=== PATIENT | female | born 1960 | race Caucasian/White ===

== ENCOUNTER 2018-12-22 20:43 | Emergency (ER) | payer MEDICAID, MEDICARE ==
[2018-12-22 21:30] VITALS: BP 165/90; PULSE 75; RESP 20; TEMP 98.6; O2SAT 100
[2018-12-22] MEDS ORDERED: Bacitracin 500 Units/gm Oint Foilpak UD TOP ONE (23:14)
--- NOTE | 2018-12-22 23:17 | C.PDOC ---
History Of Present Illness 58 year old female presents to the Ed c/o bilateral foot pain. Patient reports while at home she dropped a heavy hot pod that hit her left foot, she also fell to the ground. Patient initially c/o bilateral foot pain, while in the ED as time progressed she started c/o back achiness. Patient denies headache, neck pain, LOC, weakness, numbness. Time Seen by Provider: 12/22/18 21:24 Chief Complaint (Nursing): Lower Extremity Problem/Injury History Per: Patient History/Exam Limitations: no limitations Onset/Duration Of Symptoms: Hrs Current Symptoms Are (Timing): Still Present Recent travel outside of the [place]: No Additional History Per: Patient - Ankle/Foot Description Of Injury: Struck With Object Past Medical History Reviewed: Historical Data, Nursing Documentation, Vital Signs Vital Signs: Last Vital Signs Temp 98.6 F 12/22/18 21:26 Pulse 75 12/22/18 21:26 Resp 20 12/22/18 21:26 BP 165/90 H 12/22/18 21:26 Pulse Ox 100 12/22/18 21:26 - Medical History PMH: Anxiety, Back Problems (HERNIATED LUMBAR DISCS), Rheumatoid Arthritis, Chronic Pain (lower back pain) Denies: Chronic Kidney Disease Surgical History: No Surg Hx - [facility] Procedures CENTRAL VENOUS CATHETER PLACEMENT WITH GUIDANCE (12/02/14) CLOSURE SKIN & SUBCUTANEOUS NEC (07/31/14) PHYSICAL THERAPY NEC (08/12/14) SPINAL TAP (12/02/14) TETANUS TOXOID ADMINIST (07/31/14) Family History: States: Unknown Family Hx - Social History Hx Tobacco Use: Yes Hx Alcohol Use: No Hx Substance Use: No (DENIED) - Immunization History Hx Tetanus Toxoid Vaccination: Yes Hx Influenza Vaccination: Yes Hx Pneumococcal Vaccination: No Review Of Systems Constitutional: Negative for: Fever, Chills, Weakness Eyes: Negative for: Redness, Other ENT: Negative for: Mouth Swelling Cardiovascular: Negative for: Chest Pain Respiratory: Negative for: Cough, Shortness of Breath Gastrointestinal: Negative for: Nausea, Vomiting, Diarrhea Musculoskeletal: Positive for: Back Pain, Foot Pain Skin: Negative for: Rash Neurological: Negative for: Weakness, Numbness, Headache, Dizziness Physical Exam - Physical Exam Appears: Well, Non-toxic, No Acute Distress Skin: Normal Color, Warm, No Rash, Other (1st degree denney to dorsal aspect of bilateral feet) Head: Atraumatic, Normacephalic Eye(s): bilateral: Normal Inspection (no scleral icterus), PERRL, EOMI Neck: Normal ROM, Supple Back: No Vertebral Tenderness, Paraspinal Tenderness (of thoracic and lumbar spine), Other (walking with upright steady gait) Extremity: Normal ROM, Tenderness (dorsal aspect bilateral feet), Capillary Refill (< 2 seconds), Swelling (left foot), Other (Two 1 cm abrasions to left foot dorsal aspect) Pulses: Left Dorsalis Pedis: Normal, Right Dorsalis Pedis: Normal Neurological/Psych: Oriented x3, Normal Speech, Normal Cognition ED Course And Treatment O2 Sat by Pulse Oximetry: 100 (ON RA) Pulse Ox Interpretation: Normal - Other Rad Left foot X-ray X-Ray: Interpreted by Me, Viewed By Me Interpretation: No fracture or dislocation seen Medical Decision Making Medical Decision Making: Plan: * Motrin 600 mg PO * Flexeril 5 mg PO * bacitracin top * Left foot X-ray Patient was treated for denney with bacitracin, given also a muscle relaxant. she was cautioned to discontinue baclofen while taking flexeril. she was able to ambulate with her cane prior to discharge. her minor denney were treated with bacitracin and bandaged. compression dressing applied to left foot. Disposition Counseled Patient/Family Regarding: Diagnosis, Need For Followup, Rx Given - Disposition Referrals: Ghazala Bautista MD [Staff Provider] - Disposition: HOME/ ROUTINE Disposition Time: 23:17 Condition: STABLE Prescriptions: Bacitracin OINT 1 applic TP DAILY #1 tube Cyclobenzaprine [Flexeril] 10 mg PO HS #4 tab Instructions: Contusion (DC), Skin Denney (DC) Forms: [facility] (Bulgarian), General Discharge Instructions - Clinical Impression Clinical Impression: Contusion of left foot, initial encounter, Burn of foot, first degree - PA / LEAD PAINTER / Resident Statement MD/DO has reviewed & agrees with the documentation as recorded. - Scribe Statement The provider has reviewed the documentation as recorded by the Scribe Manny Rubio All medical record entries made by the Scribe were at my direction and personally dictated by me. I have reviewed the chart and agree that the record accurately reflects my personal performance of the history, physical exam, medical decision making, and the department course for this patient. I have also personally directed, reviewed, and agree with the discharge instructions and disposition.
[2018-12-22] MEDS ORDERED: Bacitracin 500 Units/gm Oint Foilpak UD ONE (23:21)
--- NOTE | 2018-12-23 08:03 | RAD ---
Date of service: 12/22/2018 PROCEDURE: Left Foot Radiographs. HISTORY: trauma COMPARISON: None. TECHNIQUE: 3 views obtained. FINDINGS: BONES: No acute fracture or destructive bony lesion identified. Prominent ossification of the insertion of the Achilles tendon on the posterior calcaneus. Diffuse osteopenia suggests osteoporosis. JOINTS: No subluxation or dislocation. Prominent joint space narrowing and articular cortical sclerosis appreciate the 1st metatarsophalangeal joint with lesser similar changes throughout the interphalangeal joints and midfoot joints diffusely. Overall plan reflects multifocal osteoarthritis, worst at the 1st metatarsophalangeal joint. SOFT TISSUES: [id number] midfoot and forefoot dorsal soft tissue edema is appreciated without emphysematous soft tissue changes or retained radiodense foreign body identified. OTHER FINDINGS: None. IMPRESSION: No acute fracture dislocation throughout the left foot. Degenerative changes are identified at the left foot, seen worst at the 1st metatarsophalangeal joint. [id number] midfoot and forefoot dorsal soft tissue edema.
== END 2018-12-23 | disposition home or self-care (01) ==
LOC: C.ER 20:43
DX: T25.122A Burn of first degree of left foot, initial encounter (principal); T25.121A Burn of first degree of right foot, initial encounter; S90.32XA Contusion of left foot, initial encounter; X19.XXXA Contact with other heat and hot substances, initial encounter